=== PATIENT | male | born 1960 | race Caucasian/White ===

== ENCOUNTER 2022-04-10 17:10 | Emergency (ER) | payer BC ==
[~2022-04-10] VITALS: Ht 177.8 cm; Wt 122.5 kg
[2022-04-10 17:44] VITALS: BP_SYST 15; BP_SYST 165; BP_DIAS 109
--- NOTE | 2022-04-10 17:50 | NUR ---
ARRIVAL PATIENT ARRIVED TO ED5 AMBULATORY, C/O BACK PAIN TODAY, PATIENT DECIDED SINCE PAIN CONTINUES HE SHOULD COME TO THE ED FOR EVAL, VITAL SIGNS TAKEN AND DOCTOR NOTIFIED OF PATIENT'S ARRIVAL.
--- NOTE | 2022-04-10 18:11 | ER.PDOC ---
General Chief Complaint: Neck/Upper back Pain Stated Complaint: RIGHT FLANK PAIN Time seen by MD: 18:03 Source: patient Exam Limitations: no limitations History of Present Illness Initial Comments 61M with Rt back pain x 1 day after sleeping in awkward position last night. Timing/Duration: this morning Severity/Quality: mild Associated Symptoms: denies symptoms Allergies: Coded Allergies: No Known Allergies (Unverified , 04/10/22) Past Medical History Medical History: asthma, hypertension Surgical History: other Family History Significant Family History: no pertinent family hx Social History Smoking: non-smoker Alcohol Use: occassionally Drug Use: none Review of Systems Musculoskeletal: see HPI, back pain All Other Systems: Reviewed and Negative Physical Exam General Appearance: No Apparent Distress HEENT: PERRL/EOMI Neck: Non-Tender Cardiovascular/Respiratory: Regular Rate, Rhythm Gastrointestinal: Normal Bowel Sounds Back: Normal Inspection, Muscle Spasm, Other Extremities: Other Neuro/Psych: Alert Skin: Normal Color Results/Orders Results/Orders Vital Signs Date Time Temp Pulse Resp B/P (MAP) Pulse Ox O2 Delivery O2 Flow Rate FiO2 04/10/22 17:44 98.2 103 20 04/10/22 17:44 98.2 103 20 15/109 (78) 97 Room Air* 0 21 04/10/22 17:44 98.2 103 20 Progress Progress Pt declines pain meds prefers OTC A - Mid Back / Thoracic Strain P - RICE. SxRx. OTC Motrin tid x 7 days ER DEPART Departure Time of Disposition: 18:09 Disposition: 01 HOME / SELF CARE / HOMELESS Impression: Primary Impression: Contusion of back Condition: Stable Referrals: PCP,UNKNOWN (PCP) PRIMARY CARE PROVIDER Duration or Time Spent with Pa: 30 Return to Work/School Can a patient return to work?: Yes Can a patient return to school: Yes HOLLI SHOOK MD Apr 10, 2022 18:11
== END 2022-04-10 18:15 | disposition home or self-care (01) ==
LOC: ER 17:10
DX: S20.221A Contusion of right back wall of thorax, initial encounter (principal); F10.20 Alcohol dependence, uncomplicated; I10 Essential (primary) hypertension; J45.909 Unspecified asthma, uncomplicated; X58.XXXA Exposure to other specified factors, initial encounter; Y93.89 Activity, other specified; Y92.89 Other specified places as the place of occurrence of the external cause; Y99.8 Other external cause status
CPT/HCPCS: 99282